=== PATIENT | female | born 1955 | race Caucasian/White ===

== ENCOUNTER → 2020-10-03 | Outpatient (CLI) | payer OTHER ==
--- NOTE | 2020-10-03 13:42 | RAD ---
EXAM: Right knee, 3 views. HISTORY: Pain. COMPARISON: None. FINDINGS: 3 views of the right knee are obtained. There is tricompartmental joint space narrowing and severe marginal osteophytosis. There is a small joint effusion and there are joint loose bodies. The re is no acute fracture, dislocation or subluxation. IMPRESSION: Severe tricompartmental osteoarthritis of the right knee with joint loose bodies and a sm all joint effusion. Electronically signed by: Victorina Llamas MD (10/03/2020 1:40 PM) [id number]
--- NOTE | 2020-10-03 16:11 | RAD ---
XR FOOT_RIGHT 2 VIEWS History: Right foot pain. Comparison: None. Technique: AP and lateral views of the right foot. Findings: Decreased osseous mineralization. No acute fracture or dislocation. Degenerative changes at the dorsa l talonavicular joint and navicular cuneiform the joints. Irregular contour distal fourth metatarsal may represent sequela of old fracture. Punctate metallic densities project at the medial midfoot. No focal soft tissue swelling. Impression: 1. Degenerative changes without acute osseous abnormality of the right foot. 2. Punctate calcific densities projecting at the medial foot may represent overlying artifact versus metallic foreign body. Electronically signed by: Khai Garvin MD (10/03/2020 4:09 PM) [id number]
== END ==
LOC: RAD 12:58
PROVIDERS: ATTEND Surgery
DX: M17.11 Unilateral primary osteoarthritis, right knee (principal); M25.461 Effusion, right knee; M25.761 Osteophyte, right knee; M23.41 Loose body in knee, right knee; Z02.71 Encounter for disability determination
CPT/HCPCS: 73560; 73620